=== PATIENT | female | born 1955 | race Caucasian/White ===

== ENCOUNTER 2019-08-01 13:22 | Observation (INO) | payer OTHER ==
[~2019-08-01] VITALS: Ht 162.6 cm; Wt 66.2 kg
--- NOTE | ~2019-08-01 | HC ---
[facility] [place] [address] CONSULTATION Name: RUBEN COATES Room #: 200-I [facility] Nick Rosenberg#: [id number] Admission: 08/01/19 Attend Phys: Cristian Reyez MD Discharge: 08/02/19 Date of : 59 Report #: [id number] THIS REPORT FOR: cc: [facility] - Family physician unknown STEFANIE - Family physician unknown Adan Lopez MD ~ CC: [facility] unknown Cristian Reyez DATE OF SERVICE: 08/02/2019 HISTORY OF PRESENT ILLNESS: This is a 64-year-old female patient who was seen by me for an episode where she had some dizziness, lightheadedness while sitting at a desk, vision has changed, but it is not clear how it has changed. She indicated she had a similar episode about 10 years ago. I reviewed the records in [facility] and she was here in 2010 and had an MRI, which demonstrated a finding consistent with a possible stroke and moderate white matter ischemic changes. Diffusion weighted images were normal indicating it was not acute. During this hospitalization, she had an MRI of the brain, which demonstrated chronic changes. She had an MRA of the head, which was normal. She also had a carotid Doppler, which was unremarkable. She does have a history of anxiety, but does not have any other history of a similar episode. REVIEW OF SYSTEMS: Indicate that she has a history of hypertension, hyperlipidemia and as described above. Rest of the 14-point review of system was mostly unremarkable. PAST MEDICAL HISTORY: Positive for similar episode in 2010. FAMILY HISTORY: Unremarkable. SOCIAL HISTORY: She does not smoke. PHYSICAL EXAMINATION: Indicate that she is alert. She is responsive. She can follow simple commands. Cranial nerve examinations appear unremarkable. Neuromuscular examination is unremarkable. There is no cerebellar sign. There is no meningeal sign. No cardiac abnormality. She is a reasonably well-developed individual. Her blood pressure is 120/84, respiration is 14, pulse is 68, temperature is 98.1. LABORATORY DATA: Indicates a normal white count. Imaging studies demonstrated normal brain MRI except for the chronic changes and vasculature looks clean. IMPRESSION: It is not clear what the etiology of this patient's episode is. It [facility] [address] [place] [address] CONSULTATION Name: RUBEN COATES Room #: 200-I [facility] Nick Rosenberg#: [id number] Admission: 08/01/19 Attend Phys: Cristian Reyez MD Discharge: 08/02/19 Date of : 59 Report #: [id number] is possible that the present episode was a transient ischemic attack, but is not very classical. Other etiology needs to be excluded. Cardiology is going to work up for any underlying cause for the patient's symptom and we will see if their workup shows any abnormality. From neurological perspective, I will suggest aspirin. She is already on statin and her LDL is only mildly high and I will check an EEG just to complete the workup. Main emphasis should be to work up any systemic including cardiology cause for the patient's symptoms. Time spent about 50 minutes, majority counseling and coordinating including reviewing her past records from last hospitalization and presents record. By: 1427 1900 Adan Lopez MD /nt
[~2019-08-01 13:22] MED LIST: ALTACE PO; ZOLOFT 50 MG TA50 M1 PO
[2019-08-01 13:30] VITALS: BP 146/93
[2019-08-01 14:04] LABS: ABSOLUTE NEUTROPHILS 3.7 thou/uL (1.4-8.2); BASOPHILS 0.5 % (0.0-2.0); EOSINOPHILS 0.5 % (0.0-3.0); HEMATOCRIT 41.6 % (37.0-47.0); HEMOGLOBIN 14.1 gm/dL (12.0-15.0); LYMPHOCYTES 49.1 % (24.0-44.0); MCH 30.9 pg (26.0-34.0); MCHC 33.9 g/dL (28.0-37.0); MCV 91.2 fL (80.0-100.0); MONOCYTES 4.9 % (1.0-8.0); PLATELET COUNT 211 thou/uL (150-400); RBC 4.56 mil/uL (4.20-5.00); RDW 13.8 % (10.5-14.5); WBC 8.3 thou/uL (4.0-11.0)
[2019-08-01 14:32] LABS: ANION GAP 12 mmol/L (7-16); BUN 15 mg/dL (7-18); CALCIUM 9.2 mg/dL (8.5-10.1); CHLORIDE 101 mmol/L (98-107); CO2 24 mmol/L (21-32); CREATININE 0.8 mg/dL (0.6-1.0); GLUCOSE 121 mg/dL (74-106); POTASSIUM 3.2 mmol/L (3.5-5.1); SODIUM 137 mmol/L (136-145)
[2019-08-01 14:37] LABS: ALBUMIN 4.4 g/dL (3.4-5.0); SGOT 31 U/L (15-37); SGPT 36 U/L (30-65); TOTAL BILIRUBIN 0.5 mg/dL (<0.1-1.0)
[2019-08-01 14:48] LABS: DIRECT BILIRUBIN < 0.1 mg/dL (<0.1-0.2)
[2019-08-01 14:56] LABS: APTT 24.9 Seconds (24.5-32.8); PROTIME 9.9 Seconds (9.3-11.4)
[2019-08-01] MEDS ORDERED: LIPITOR40 MG PO (17:15)
[2019-08-01] MEDS ORDERED: NORVASC 2.5 MG2.5 M1 PO (17:15)
[2019-08-01 19:10] VITALS: BP 147/98
[2019-08-01] MEDS ORDERED: VITAMIN D350 MC3 PO (20:56)
[2019-08-01 21:11] VITALS: BP 135/85
[2019-08-02 00:18] VITALS: BP 124/77
--- NOTE | 2019-08-02 00:33 | NUR ---
PT ARRIVED AT THE UNIT AOUND 1949, PT IS A&0X4, DENIES CHEST PAIN OR SOB, DENIES LIGHT HEADEDNESS, HEADACHE, NAUSEA OR VOMITING, ADMISSION ASSESSMENT XI AND CHARTED, SR/SA ON THE MONITOR, DENIES ANY CONCERNS, WILL CONTINUE TO MONITOR
[2019-08-02 05:01] VITALS: BP 146/97
[2019-08-02 05:48] LABS: ABSOLUTE NEUTROPHILS 3.2 thou/uL (1.4-8.2); BASOPHILS 0.2 % (0.0-2.0); EOSINOPHILS 0.7 % (0.0-3.0); HEMATOCRIT 38.9 % (37.0-47.0); HEMOGLOBIN 13.5 gm/dL (12.0-15.0); LYMPHOCYTES 40.4 % (24.0-44.0); MCH 32.4 pg (26.0-34.0); MCHC 34.7 g/dL (28.0-37.0); MCV 93.4 fL (80.0-100.0); PLATELET COUNT 201 thou/uL (150-400); POLYS 52.7 % (36.0-66.0); RBC 4.16 mil/uL (4.20-5.00); RDW 14.1 % (10.5-14.5); WBC 6.1 thou/uL (4.0-11.0)
[2019-08-02 06:09] LABS: ANION GAP 9 mmol/L (7-16); BUN 10 mg/dL (7-18); CALCIUM 8.9 mg/dL (8.5-10.1); CHLORIDE 106 mmol/L (98-107); CHOLESTEROL 177 mg/dL (<200); CO2 27 mmol/L (21-32); CREATININE 0.8 mg/dL (0.6-1.0); GLUCOSE 88 mg/dL (74-106); HDL CHOLESTEROL 63 mg/dL (>40); LDL CHOLESTEROL 105 mg/dL (<100); MAGNESIUM 2.3 mg/dL (1.8-2.4); POTASSIUM 3.9 mmol/L (3.5-5.1); SODIUM 142 mmol/L (136-145); TC:HDL 2.8 Ratio (Not establshd); TRIGLYCERIDE 48 mg/dL (<150); VLDL 10 mg/dL (<40)
[2019-08-02 06:16] LABS: SERUM ASSESSMENT Clear
[2019-08-02 07:14] VITALS: BP 135/83
--- NOTE | 2019-08-02 08:00 | EKG ---
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
--- NOTE | 2019-08-02 11:53 | NUR ---
ORDERS RECEIVED FOR PT EVAL AND TREAT. Pt ADMITTED FOR TIA. 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 LIVES IN APT ALONE WITH 5-6 STEPS TO ENTER. NO USE OF GAIT AIDS. ASSISTS HER ELDERLY PARENTS. Pt HAS HX OF PRIOR CVA 10-12 YEARS AGO. A0X4. NO VISUAL ISSUES CURRENTLY BUT HAS SMALL HEADACHE. Pt HAS BEEN GETTING UP INDEPENDENTLY IN ROOM WITHOUT DIFFICULTY. DENIED BALANCE DEFICITS OR STRENGTH DEFICITS UNILATERALLY. ABLE TO COMPLETE SLR BILAT W/O DIFFICULTY. Pt DECLINED NEED FOR ACUTE PT SERVICES AT THIS TIME. DENIED QUESTIONS OR CONCERNS ABOUT RETURNING HOME UPON MEDICAL CLEARANCE. ACUTE PT TO SIGN OFF.
[2019-08-02 11:55] VITALS: BP 120/84
--- NOTE | 2019-08-02 13:53 | 2DMMODE ---
[facility] Crist[address] [address] 2 D/M-MODE ECHOCARDIOGRAM Name: RUBEN COATES BRAYAN Room #: 200-I ADM IN M.R.#: [id number] Admission: 08/01/19 Attend Phys: Cristian Reyez MD Discharge: Date of : 59 Report #: [id number] THIS REPORT FOR: cc: FAM - Family physician unknown FAM - Family physician unknown Bruce Sampson MD ~ APPROVED REPORT Study performed: 08/02/2019 12:54:41 EXAM: Comprehensive 2D, Doppler, and color-flow Echocardiogram Patient Location: Bedside Room #: 200 Status: routine BSA: 1.71 HR: 90 bpm BP: 135/83 mmHg Rhythm: NSR Other Information Study Quality: Good Indications Near syncope. Bubble study requested. HX: HTN, HLP. Echo Enhancing Agent Indication: Rule out Shunt Agent(s) / Amount(s) Used: Agitated Saline 6 cc 2D Dimensions RVDd: 29.24 mm IVSd: 8.86 (7-11mm) LVOT Diam: 20.99 (18-24mm) LVDd: 51.40 mm PWd: 7.76 (7-11mm) Ascending Ao: 32.62 (22-36mm) LVDs: 36.64 (25-40mm) Aortic Root: 34.56 mm Volumes Left Atrial Volume (Systole) Single Plane 4CH: 39.86 mL Single Plane 2CH: 57.17 mL LA ESV Index: 31.00 mL/m2 Aortic Valve [facility] [address] [place] [address] 2 D/M-MODE ECHOCARDIOGRAM Name: RUBEN COATES Room #: 200-I ADM IN .R.#: [id number] Admission: 08/01/19 Attend Phys: Cristian Reyez, Discharge: Date of : 59 Report #: [id number] AoV Peak Ketan.: 1.60 m/s AO Peak Gr.: 10.28 mmHg LVOT Max P.72 mmHg LVOT Max V: 0.96 m/s SAMANTHA Vmax: 2.08 cm2 Mitral Valve E/A Ratio: 1.4 MV Decel. Time: 131.12 ms MV E Max Ketan.: 0.79 m/s MV A Ketan.: 0.56 m/s MV PHT: 38.02 ms IVRT: 58.82 ms Pulmonary Valve PV Peak Ketan.: 0.83 m/s PV Peak Gr.: 2.77 mmHg Pulmonary Vein P Vein S: 0.63 m/s P Vein A: 0.32 m/s P Vein D: 0.48 m/s P Vein A Dur.: 110.7 msec P Vein S/D Ratio: 1.31 Tricuspid Valve TR Peak Ketan.: 1.93 m/s RAP Estimate: 5.00 mmHg TR Peak Gr.: 15.00 mmHg PA Pressure: 20.00 mmHg Left Ventricle The left ventricle is normal size. There is normal LV segmental wall motion. There is normal left ventricular wall thickness. Left ventricular systolic function is normal. LVEF is 55%. Moderate diastolic dysfunction is present (pseudonormal filling). Right Ventricle The right ventricle is normal size. The right ventricular systolic function is normal. Atria Left atrium is at the upper limits of normal. No shunting noted by contrast bubble injection. The right atrium size is normal. Aortic Valve The aortic valve is normal in structure. Trace aortic regurgitation. There is no aortic valvular stenosis. Mitral Valve The mitral valve is normal in structure. Trace to mild mitral [facility] [address] [place] [address] 2 D/M-MODE ECHOCARDIOGRAM Name: RUBEN COATES ROSELLE Room #: 200I [facility] IN .R.#: [id number] Admission: 08/01/19 Attend Phys: Cristian Reyez, Discharge: Date of : 59 Report #: [id number] regurgitation. No evidence of mitral valve stenosis. Tricuspid Valve The tricuspid valve is normal in structure. Trace tricuspid regurgitation. Estimated PAP is 20mmHg. Pulmonic Valve The pulmonary valve is normal in structure. Mild pulmonic regurgitation. Great Vessels The aortic root is normal in size. The ascending aorta is normal in size. IVC is normal in size and collapses >50% with inspiration. Pericardium There is no pericardial effusion. <Conclusion> The left ventricle is normal size. LVEF is 55%. The aortic valve is normal in structure. Trace aortic regurgitation. The mitral valve is normal in structure. Trace to mild mitral regurgitation. The tricuspid valve is normal in structure. Trace tricuspid regurgitation. Estimated PAP is 20mmHg. The pulmonary valve is normal in structure. Mild pulmonic regurgitation. There is no pericardial effusion. No shunting noted by contrast bubble injection. <ELECTRONICALLY SIGNED> By: Bruce Sampson MD 08/02/19 1351 1351 1351 Bruce Sampson MD /INF
[2019-08-02 16:07] VITALS: BP 139/72
[2019-08-02] MEDS ORDERED: ASPIR 8181 MG PO (17:28)
[2019-08-02 17:47] VITALS: BP 120/84
--- NOTE | 2019-08-02 19:39 | NUR ---
ASSUMED CARE PT SHIFT CHANGE. ASSESSMENT CHARTEED. MEDS GIVEN PER JUN. PT ALERT AND ORIENTED.VSS. DENIES PAIN. O2 SATS WNL ON ROOM AIR. DENIES N/V/DIZZY. ECHO AND MRI THIS SHIFT--SEE RESULTS. PT HAD LOOP RECORDER IMPLANTED. DC ORDERS ACKNOWLEDGED AND IMPLEMENTED. DC PAPERWORK DISCUSSED WITH PT. COMMUNICATES UNDERSTANDING. IV RMEOVED. TELE REMOVED. PT LEFT UNIT WITH ALL BELONGINGS.
--- NOTE | 2019-08-03 10:46 | LINQ ---
[facility] Cristóbal [place] [address] LINQ PROCEDURE REPORT Name: RUBEN COATES Room #: 200-I [facility] Nick Rosenberg#: [id number] Admission: 08/01/19 Attend Phys: Cristian Reyez MD Discharge: 08/02/19 Date of : 59 Report #: [id number] THIS REPORT FOR: cc: FAM - Family physician unknown FAM - Family physician unknown Bruce Sampson MD ~ THIS REPORT FOR: //name// APPROVED REPORT Study performed: 08/02/2019 15:34:23 Patient Status: In-Patient Room #: Event Personnel: Bruce Sampson MD Exam: Reveal LINQ Recorder Implant Indications: TIA, prior cryptic CVA The patient is a 64 year-old with a history of cryptic stroke presenting with TIA like symptoms. Implanted Devices: Medtronic: Reveal LINQ; Model #: LNQ11; SN: [id number] Procedure The patient underwent informed consent. We discussed the details of the procedure including the risks, which include, but not limited to bleeding, infection, vascular damage, cardiac perforation, and pneumothorax. The patient's left chest was prepped and draped in usual sterile manner. Utilizing lidocaine a wheal was raised and the skin incision tract was anesthetized. Using subsequent lidocaine a tract was anesthetized for the proposed insertion of the device. Using 11 blade a small incision was made. He both sharp and blunt dissection a pocket was developed. With the device included deployment to of the device was then deployed without difficulty in position. The subcutaneous tissue is oversewn with 2 simple interrupted sutures. Skin was closed with 3-0 Vicryl running subcuticular. Steri-Strips 4 x 4 OpSite was then utilized. Complications The patient tolerated the procedure well and there were no complications associated with the procedure. Conclusion [facility] [employer] [place] [address] LINQ PROCEDURE REPORT Name: RUBEN COATES Room #: [address] [place] [address] IN .R.#: [id number] Admission: 08/01/19 Attend Phys: Cristian Reyez, Discharge: 08/02/19 Date of : 59 Report #: [id number] 1. Successful insertion of a Medtronic LINQ loop recorder Recommendations 1. Routine post ILR insertion protocol <ELECTRONICALLY SIGNED> By: Bruce Sampson MD 08/03/19 1045 44 Bruce Sampson MD /INF
== END 2019-08-02 18:00 | disposition home or self-care (01) ==
LOC: ER 13:22 → EROBS 16:58 → 2N 16:58
PROVIDERS: Emergency Medicine; Nurse Practitioner; ADMIT Internal Medicine
DX: G45.9 Transient cerebral ischemic attack, unspecified (principal); I67.4 Hypertensive encephalopathy; H53.8 Other visual disturbances; R55 Syncope and collapse; E87.6 Hypokalemia; I10 Essential (primary) hypertension; E78.5 Hyperlipidemia, unspecified; Z86.73 Personal history of transient ischemic attack (TIA), and cerebral infarction without residual deficits; R42 Dizziness and giddiness; F32.9 Major depressive disorder, single episode, unspecified; F41.9 Anxiety disorder, unspecified
CPT/HCPCS: 10081